=== PATIENT | male | born 1940 | race Caucasian/White ===

== ENCOUNTER 2017-08-01 11:20 | Inpatient (IN) | payer MEDICARE, MEDICAID ==
[~2017-08-01] VITALS: Ht 175.3 cm; Wt 97.0 kg
[2017-08-01] VITALS (7 sets, daily range): BP systolic 103–158; BP diastolic 52–89; PULSE 67–118; RESP 19–20; TEMP 97.3–98.4; O2SAT 94–98
[~2017-08-01 11:20] MED LIST: ASPI81 PO; BENA25TA8 PO; CEPH500C3 PO; IMDU30TA PO; LIPI80TA16 PO; METF-324 OR; METF-324 PO; PRAS10TA PO; PRED20 PO; PRIN5TAB PO
[2017-08-01] MEDS ORDERED: ACETAMINOPHEN 500 MG CPLT PO ONE (11:45)
[2017-08-01] MEDS ORDERED: methylPREDNISolone SOD SUCC 125 MG/2 ML VIAL IV PUSH ONE (11:45)
--- NOTE | 2017-08-01 11:47 | PD ---
HPI Chief Complaint: Respiratory Symptoms Time Seen by Provider: 11:31 Travel History International Travel<30 days: No Contact w/Intl Traveler<30days: No Traveled to known affect area: No History of Present Illness HPI This is a 77-year-old male with history of coronary artery disease, hyperlipidemia, diabetes, presents for evaluation. For the past 6 days he has had cough, congestion, abdominal pain. He reports that the cough is dry, worse at night, associated nasal congestion. He has also been experiencing abdominal pain, primarily in the left lower quadrant, aching, worse when coughing. He reports that 2 days ago he was having chills and his next door neighbor who is a nurse told him that he had a fever but he does not know the temperature. He has had no chills since then. He denies chest pain, nausea or vomiting, diarrhea, sore throat. He denies rash or recent travel. No sick contacts. He has been using [id number] cough and cold medications but his symptoms have persisted. His primary care physician is Dr. Childs. He reports that he received the influenza vaccination this year. No other complaints. PFSH Past Medical History Autoimmune Disease: No Cancer: No Cardiovascular Problems: No Diabetes: Yes Patient Takes Glucophage: No Endocrine: Yes Gastrointestinal Disorders: No Genitourinary: No Hiatal Hernia: Yes Immune Disorder: No Implanted Vascular Access Dvce: No Musculoskeletal: No Neurologic: No Psychiatric: No Reproductive: No Respiratory: No Thyroid Disease: No Past Surgical History Surgical History: No Previous Surgery Abdominal Surgery: Yes (HERNIA) Cardiac Surgery: Yes (STENTS) Ear Surgery: No Endocrine Surgery: No Eye Surgery: No Genitourinary Surgery: No Gynecologic Surgery: No Neurologic Surgery: No Oral Surgery: No Thoracic Surgery: No Other Surgery: Yes Social History Alcohol Use: No Tobacco Use: Yes Substance Use: No Allergies-Medications (Allergen,Severity, Reaction): Coded Allergies: No Known Allergies (Verified , 12/12/11) Reported Meds & Prescriptions Reported Meds & Active Scripts Active Review of Systems Except as stated in HPI: all other systems reviewed are Neg Physical Exam Narrative GENERAL: Well-developed well-nourished male in no acute distress. SKIN: Warm and dry. HEAD: Atraumatic. Normocephalic. EYES: Pupils equal and round. No scleral icterus. No injection or drainage. ENT: No nasal bleeding or discharge. Mucous membranes pink and moist. No oral pharyngeal erythema or exudate. NECK: Trachea midline. No JVD. No lymphadenopathy. CARDIOVASCULAR: Regular rate and rhythm. No murmur appreciated. RESPIRATORY: No accessory muscle use. Expiratory wheezing noted bilaterally with coarse breath sounds. GASTROINTESTINAL: Abdomen soft, abdominal wall hernia noted. There is mild left lower quadrant tenderness to palpation without guarding. There is no CVA tenderness. MUSCULOSKELETAL: No obvious deformities. No clubbing. No cyanosis. No edema. NEUROLOGICAL: Awake and alert. No obvious cranial nerve deficits. Motor grossly within normal limits. Normal speech. PSYCHIATRIC: Appropriate mood and affect; insight and judgment normal. Data Data Last Documented VS Vital Signs Date Time Temp Pulse Resp B/P (MAP) Pulse Ox O2 Delivery O2 Flow Rate FiO2 08/01/17 12:11 98 Aerosol Mask 6.00 08/01/17 12:11 95 30 08/01/17 11:22 98.4 Orders Orders Complete Blood Count With Diff (08/01/17 11:41) Comprehensive Metabolic Panel (08/01/17 11:41) Lipase (08/01/17 11:41) Urinalysis - C+S If Indicated (08/01/17 11:41) Ct Abd/Pel W Iv Contrast(Rout) (08/01/17 11:41) Iv Access Insert/Monitor (08/01/17 11:41) Ecg Monitoring (08/01/17 11:41) Oximetry (08/01/17 11:41) Electrocardiogram (08/01/17 11:41) Influenzae A/B Antigen (08/01/17 11:41) Chest, Single Ap (08/01/17 ) Albuterol-Ipratropium Neb (Duoneb Neb) (08/01/17 11:45) Acetaminophen (Tylenol) (08/01/17 11:45) Methylprednisolone So Succ Inj (Solumedr (08/01/17 11:45) Sodium Chlorid 0.9% 500 Ml Inj (Ns 500 M (08/01/17 13:15) Lactic Acid Sepsis Protocol (08/01/17 13:13) Blood Culture (08/01/17 13:13) Iohexol 350 Inj (Omnipaque 350 Inj) (08/01/17 13:40) Ceftriaxone Inj (Rocephin Inj) (08/01/17 14:30) Azithromycin Inj (Zithromax Inj) (08/01/17 14:30) Labs Laboratory Tests Test 08/01/17 12:05 08/01/17 13:50 White Blood Count 9.8 TH/MM3 Red Blood Count 4.18 MIL/MM3 Hemoglobin 13.1 GM/DL Hematocrit 36.3 % Mean Corpuscular Volume 86.8 FL Mean Corpuscular Hemoglobin 31.3 PG Mean Corpuscular Hemoglobin Concent 36.0 % Red Cell Distribution Width 14.4 % Platelet Count 151 TH/MM3 Mean Platelet Volume 7.0 FL Neutrophils (%) (Auto) 79.2 % Lymphocytes (%) (Auto) 11.9 % Monocytes (%) (Auto) 8.4 % Eosinophils (%) (Auto) 0.1 % Basophils (%) (Auto) 0.4 % Neutrophils # (Auto) 7.8 TH/MM3 Lymphocytes # (Auto) 1.2 TH/MM3 Monocytes # (Auto) 0.8 TH/MM3 Eosinophils # (Auto) 0.0 TH/MM3 Basophils # (Auto) 0.0 TH/MM3 CBC Comment AUTO DIFF Differential Total Cells Counted 100 Neutrophils % (Manual) 73 % Band Neutrophils % 16 % Lymphocytes % 6 % Monocytes % 5 % Neutrophils # (Manual) 8.7 TH/MM3 Differential Comment FINAL DIFF MANUAL Platelet Estimate NORMAL Platelet Morphology Comment NORMAL Ovalocytes 1+ Urine Color YELLOW Urine Turbidity CLEAR Urine pH 7.0 Urine Specific [place] 1.015 Urine Protein TRACE mg/dL Urine Glucose (UA) NEG mg/dL Urine Ketones NEG mg/dL Urine Occult Blood NEG Urine Nitrite NEG Urine Bilirubin NEG Urine Urobilinogen 8.0 MG/DL Urine Leukocyte Esterase NEG Urine RBC 1 /hpf Urine Squamous Epithelial Cells 1 /hpf Microscopic Urinalysis Comment CULT NOT INDICATED Blood Urea Nitrogen 35 MG/DL Creatinine 1.41 MG/DL Random Glucose 161 MG/DL Total Protein 7.6 GM/DL Albumin 3.6 GM/DL Calcium Level 8.3 MG/DL Alkaline Phosphatase 130 U/L Aspartate Amino Transf (AST/SGOT) 21 U/L Alanine Aminotransferase (ALT/SGPT) 15 U/L Total Bilirubin 1.0 MG/DL Sodium Level 138 MEQ/L Potassium Level 4.3 MEQ/L Chloride Level 102 MEQ/L Carbon Dioxide Level 28.6 MEQ/L Anion Gap 7 MEQ/L Estimat Glomerular Filtration Rate 49 ML/MIN Lipase 56 U/L Lactic Acid Level 1.5 mmol/L MDM Medical Decision Making Medical Screen Exam Complete: Yes Emergency Medical Condition: Yes Medical Record Reviewed: Yes Interpretation(s) CONCLUSION: 1. No evidence of acute abdominal or pelvic process. No masses are identified. 2. Right basilar atelectasis versus pneumonia 3. Fat-containing right inguinal hernia 4. 5. Right lateral abdominal wall hernia containing nonincarcerated: 6. Cholelithiasis Differential Diagnosis COPD, pneumonia, influenza, reactive airway disease, bronchitis, diverticulitis Narrative Course The patient was placed on ECG monitoring pulse oximetry. A 12 EKG was obtained revealing left bundle branch block. Chest x-ray reveals right basilar streakiness consistent with atelectasis and/or mild infiltrate. CBC reveals 16 % band neutrophils. GFR reveals 49 which is decreased from previous labs in 2012. Per chart review the patient has an ejection fraction of 25-30% on echocardiogram in 2012. Small bolus of IV fluids has been initiated and lactic acid and blood cultures will be sent. The patient was started on azithromycin and Rocephin for community acquired pneumonia. He will be admitted. Sepsis Criteria SIRS Criteria (2 or more): Heart rate over 90, WBC > 50218, < 4000 or > 10% bands Sepsis Criteria (SIRS+source): Infect source susp/known Criteria Outcome: Meets sepsis criteria Diagnosis Primary Impression: Pneumonia Additional Impression: Sepsis Admitting Information Admitting Physician Requests: it Nelson Guzman Aug 01, 2017 11:47
[2017-08-01] MEDS: RESP: ALBUTEROL 2.5 MG/IPRATROPIUM 0.5 MG NEB (SCH) INH ×2 (11:50→11:51)
[2017-08-01 12:21] LABS: AUTOMATED NEUTROPHIL # 7.8 TH/MM3 (1.8-7.7); BASOPHIL % 0.4 % (0.0-2.0); EOSINOPHIL % 0.1 % (0.0-4.0); HEMATOCRIT 36.3 % (39.0-51.0); HEMOGLOBIN 13.1 GM/DL (13.0-17.0); LYMPH % 11.9 % (9.0-44.0); LYMPHOCYTE # 1.2 TH/MM3 (1.0-4.8); MEAN CELL VOLUME 86.8 FL (80.0-100.0); MEAN CORPUSCULAR HEMOGLOBIN 31.3 PG (27.0-34.0); MONO % 8.4 % (0.0-8.0); MONOCYTE # 0.8 TH/MM3 (0-0.9); NEUT % 79.2 % (16.0-70.0); PLATELET COUNT 151 TH/MM3 (150-450); RED BLOOD COUNT 4.18 MIL/MM3 (4.50-5.90); RED CELL DISTRIBUTION WIDTH 14.4 % (11.6-17.2); WHITE BLOOD COUNT 9.8 TH/MM3 (4.0-11.0)
[2017-08-01 12:22] LABS: BILIRUBIN, URINE NEG (NEG); BLOOD, URINE NEG (NEG); GLUCOSE,URINE NEG (NEG); KETONE, URINE NEG (NEG); NITRITE,URINE NEG (NEG); SQUAMOUS EPITHELIAL CELL URINE 1 /hpf (0-5); URINE COLOR YELLOW (YELLW/STRAW); URINE LEUKOCYTE ESTERASE NEG (NEG)
--- NOTE | 2017-08-01 12:35 | RADRPT ---
EXAM DATE/TIME: 08/01/2017 11:59 [facility] COMPARISON: No previous studies available for comparison. INDICATIONS : Patient complains of cough and shortness of breath. MEDICAL HISTORY : None. SURGICAL HISTORY : None. ENCOUNTER: Initial ACUITY: 3 days PAIN SCORE: 0/10 LOCATION: chest FINDINGS: Right basilar streakiness is noted consistent with atelectasis and/or mild infiltrate. Clinical corre lation is recommended. The left lung is clear. The heart is normal. Degenerative changes are noted th roughout the thoracic spine. CONCLUSION: Right basilar streakiness consistent with atelectasis and/or mild infiltrate. Clinical correlation is recommended. Dioni Proctor MD on August 01, 2017 at 12:32 Board Certified Radiologist. This report was verified electronically.
[2017-08-01 12:37] LABS: ALBUMIN 3.6 GM/DL (3.4-5.0); ALT (GPT) 15 U/L (12-78); AST (GOT) 21 U/L (15-37); BICARBONATE 28.6 MEQ/L (21.0-32.0); BLOOD UREA NITROGEN 35 MG/DL (7-18); CALCIUM 8.3 MG/DL (8.5-10.1); CHLORIDE 102 MEQ/L (98-107); CREATININE 1.41 MG/DL (0.60-1.30); GLOMERULAR FILTRATION RATE 49 ML/MIN (>89); GLUCOSE,RANDOM 161 MG/DL (74-106); LIPASE 56 U/L (73-393); SODIUM (NA) 138 MEQ/L (136-145)
[2017-08-01 12:39] LABS: ALKALINE PHOSPHATASE 130 U/L (45-117); TOTAL PROTEIN 7.6 GM/DL (6.4-8.2)
[2017-08-01 13:03] LABS: BANDS 16 % (0-6); LYMPHOCYTES 6 % (9-44); MONOCYTES 5 % (0-8); NEUTROPHIL # MANUAL DIFF 8.7 TH/MM3 (1.8-7.7); OVALOCYTES 1+ (NORMAL); POLYS (SEG NEUTROPHILS) 73 % (16-70)
[2017-08-01] MEDS ORDERED: SODIUM CHLORID 0.9% 500 ML INJ 500 ML IV ONE (13:15)
[2017-08-01] MEDS ORDERED: METFORMIN HOLD POST IV CONTRAST SCH (13:40)
[2017-08-01] MEDS ORDERED: IOHEXOL 350 MG/ML 10 ML VIAL (for RAD DIAG) IVCONTRAST ONE (13:40)
--- NOTE | 2017-08-01 14:16 | RADRPT ---
EXAM DATE/TIME: 08/01/2017 13:24 [facility] COMPARISON: No previous studies available for comparison. INDICATIONS : Left lower abdomen pain for six days. IV CONTRAST: 95 cc Omnipaque 350 (iohexol) IV ORAL CONTRAST: No oral contrast ingested. RADIATION DOSE: 8.24 CTDIvol (mGy) MEDICAL HISTORY : Hernia, hiatal. diabetes SURGICAL HISTORY : hernia repair ENCOUNTER: Initial ACUITY: 4 - 6 days PAIN SCALE: 6/10 LOCATION: Left lower quadrant TECHNIQUE: Volumetric scanning of the abdomen and pelvis was performed. Using automated exposure control and ad justment of the mA and/or kV according to patient size, radiation dose was kept as low as reasonably achievable to obtain optimal diagnostic quality images. DICOM format image data is available electro nically for review and comparison. FINDINGS: There is right basal atelectasis versus pneumonia in this patient with bibasilar bronchiectasis. The liver and spleen are normal in size and no focal defects are identified. There is eventration of the right hemidiaphragm. There is a single stone within the gallbladder without wall thickening or perich olecystic fluid measuring 2 cm. The pancreas demonstrates no evidence of mass and there is no dilatat ion of the pancreatic duct. The adrenal glands are unremarkable. There are simple cysts bilaterally t he largest measuring 5 cm is on the left with a small focal area of benign-appearing calcification. Examination of the pelvis demonstrates no evidence of free fluid or pelvic mass. No abnormally enlarg ed inguinal or retroperitoneal lymph nodes are present. The bladder is unremarkable. There is diverti culosis without evidence of diverticulitis. There is a fat-containing right inguinal hernia present m easuring 5 cm. There is a second hernia in the right lower quadrant and a lateral, wall containing no nincarcerated loops of colon. CONCLUSION: 1. No evidence of acute abdominal or pelvic process. No masses are identified. 2. Right basilar atelectasis versus pneumonia 3. Fat-containing right inguinal hernia 4. 5. Right lateral abdominal wall hernia containing nonincarcerated: 6. Cholelithiasis Brice Perez MD on August 01, 2017 at 14:07 Board Certified Radiologist. This report was verified electronically.
--- NOTE | 2017-08-01 14:26 | PD ---
Physical Exam Narrative GENERAL: Well-nourished, well-developed patient. SKIN: Warm and dry. HEAD: Normocephalic and atraumatic. EYES: No injection or drainage. ENT: No nasal drainage noted. NECK: Supple, trachea midline. CARDIOVASCULAR: Regular rate and rhythm RESPIRATORY: no increased effort. No accessory muscle use. NEUROLOGICAL: Awake. moves all extremities and sensory grossly within normal limits. Normal speech. Data Data Last Documented VS Vital Signs Date Time Temp Pulse Resp B/P (MAP) Pulse Ox O2 Delivery O2 Flow Rate FiO2 08/01/17 12:11 98 Aerosol Mask 6.00 08/01/17 12:11 95 30 08/01/17 11:22 98.4 Orders Orders Complete Blood Count With Diff (08/01/17 11:41) Comprehensive Metabolic Panel (08/01/17 11:41) Lipase (08/01/17 11:41) Urinalysis - C+S If Indicated (08/01/17 11:41) Ct Abd/Pel W Iv Contrast(Rout) (08/01/17 11:41) Iv Access Insert/Monitor (08/01/17 11:41) Ecg Monitoring (08/01/17 11:41) Oximetry (08/01/17 11:41) Electrocardiogram (08/01/17 11:41) Influenzae A/B Antigen (08/01/17 11:41) Chest, Single Ap (08/01/17 ) Albuterol-Ipratropium Neb (Duoneb Neb) (08/01/17 11:45) Acetaminophen (Tylenol) (08/01/17 11:45) Methylprednisolone So Succ Inj (Solumedr (08/01/17 11:45) Sodium Chlorid 0.9% 500 Ml Inj (Ns 500 M (08/01/17 13:15) Lactic Acid Sepsis Protocol (08/01/17 13:13) Blood Culture (08/01/17 13:13) Iohexol 350 Inj (Omnipaque 350 Inj) (08/01/17 13:40) Labs Laboratory Tests Test 08/01/17 12:05 08/01/17 13:50 White Blood Count 9.8 TH/MM3 Red Blood Count 4.18 MIL/MM3 Hemoglobin 13.1 GM/DL Hematocrit 36.3 % Mean Corpuscular Volume 86.8 FL Mean Corpuscular Hemoglobin 31.3 PG Mean Corpuscular Hemoglobin Concent 36.0 % Red Cell Distribution Width 14.4 % Platelet Count 151 TH/MM3 Mean Platelet Volume 7.0 FL Neutrophils (%) (Auto) 79.2 % Lymphocytes (%) (Auto) 11.9 % Monocytes (%) (Auto) 8.4 % Eosinophils (%) (Auto) 0.1 % Basophils (%) (Auto) 0.4 % Neutrophils # (Auto) 7.8 TH/MM3 Lymphocytes # (Auto) 1.2 TH/MM3 Monocytes # (Auto) 0.8 TH/MM3 Eosinophils # (Auto) 0.0 TH/MM3 Basophils # (Auto) 0.0 TH/MM3 CBC Comment AUTO DIFF Differential Total Cells Counted 100 Neutrophils % (Manual) 73 % Band Neutrophils % 16 % Lymphocytes % 6 % Monocytes % 5 % Neutrophils # (Manual) 8.7 TH/MM3 Differential Comment FINAL DIFF MANUAL Platelet Estimate NORMAL Platelet Morphology Comment NORMAL Ovalocytes 1+ Urine Color YELLOW Urine Turbidity CLEAR Urine pH 7.0 Urine Specific [place] 1.015 Urine Protein TRACE mg/dL Urine Glucose (UA) NEG mg/dL Urine Ketones NEG mg/dL Urine Occult Blood NEG Urine Nitrite NEG Urine Bilirubin NEG Urine Urobilinogen 8.0 MG/DL Urine Leukocyte Esterase NEG Urine RBC 1 /hpf Urine Squamous Epithelial Cells 1 /hpf Microscopic Urinalysis Comment CULT NOT INDICATED Blood Urea Nitrogen 35 MG/DL Creatinine 1.41 MG/DL Random Glucose 161 MG/DL Total Protein 7.6 GM/DL Albumin 3.6 GM/DL Calcium Level 8.3 MG/DL Alkaline Phosphatase 130 U/L Aspartate Amino Transf (AST/SGOT) 21 U/L Alanine Aminotransferase (ALT/SGPT) 15 U/L Total Bilirubin 1.0 MG/DL Sodium Level 138 MEQ/L Potassium Level 4.3 MEQ/L Chloride Level 102 MEQ/L Carbon Dioxide Level 28.6 MEQ/L Anion Gap 7 MEQ/L Estimat Glomerular Filtration Rate 49 ML/MIN Lipase 56 U/L Lactic Acid Level 1.5 mmol/L MDM Supervised Visit with LUPE: Yes Interpretation(s) CBC & BMP Diagram 08/01/17 12:05 Total Protein 7.6, Albumin 3.6, Calcium Level 8.3 L, Alkaline Phosphatase 130 H , Aspartate Amino Transf (AST/SGOT) 21, Alanine Aminotransferase (ALT/SGPT) 15, Total Bilirubin 1.0 Last 24 hours Impressions Abdomen/Pelvis CT 08/01/17 1141 Signed Impressions: Service Date/Time: Tuesday, August 01, 2017 13:24 - CONCLUSION: 1. No evidence of acute abdominal or pelvic process. No masses are identified. 2. Right basilar atelectasis versus pneumonia 3. Fat-containing right inguinal hernia 4. 5. Right lateral abdominal wall hernia containing nonincarcerated: 6. Cholelithiasis Brice Perez MD Chest X-Ray 08/01/17 0000 Signed Impressions: Service Date/Time: Tuesday, August 01, 2017 11:59 - CONCLUSION: Right basilar streakiness consistent with atelectasis and/or mild infiltrate. Clinical correlation is recommended. Dioni Proctor MD Narrative Course I, Dr. chan, have reviewed the advance practice practitioner's documentation and am in agreement, met with the patient face to face, made the diagnosis, and the medical decision making was done by me. *My assessment and Findings: 77-year-old male presents with cough and flulike symptoms with abdominal pain. Workup reveals pneumonia with bands noted. Patient is also tachypneic and initially tachycardic. Lactate is normal patient has no signs of hypotension. He'll be admitted to the hospital for further care. Sepsis Criteria SIRS Criteria (2 or more): Heart rate over 90, RR > 20 or PaCO2 < 32, WBC > 44875, < 4000 or > 10% bands Sepsis Criteria (SIRS+source): Infect source susp/known Diagnosis Primary Impression: Pneumonia Qualified Codes: J18.9 - Pneumonia, unspecified organism Additional Impression: Sepsis Qualified Codes: A41.9 - Sepsis, unspecified organism Britta Chan MD Aug 01, 2017 14:26
[2017-08-01] MEDS ORDERED: AZITHROMYCIN INJ 500 MG in SODIUM CHLOR 0.9% 250 ML INJ 250 ML IV ONE (14:30)
[2017-08-01] MEDS ORDERED: cefTRIAXone INJ 1,000 MG in SODIUM CHLORIDE 0.9% INJ 100 ML IV ONE (14:30)
[2017-08-01] MEDS ORDERED: ONDANSETRON HCL 4 MG/2 ML VIAL IVP PRN (14:45)
[2017-08-01] MEDS ORDERED: RESP: ALBUTEROL 2.5 MG/IPRATROPIUM 0.5 MG NEB (PRN) NEB (14:45)
[2017-08-01] MEDS ORDERED: SODIUM CHLORIDE 0.9% FLUSH 10 ML FLUSH IV FLUSH PRN (14:45)
[2017-08-01] MEDS ORDERED: MAGNESIUM HYDROXIDE SUSP 30 ML CUP PO PRN (14:45)
[2017-08-01] MEDS ORDERED: NALOXONE HCL 0.4 MG/ML AMP IV PUSH PRN (14:45)
[2017-08-01] MEDS ORDERED: ACETAMINOPHEN 325 MG TAB PO PRN (14:45)
[2017-08-01] MEDS ORDERED: FURO20TA PO (15:59)
[2017-08-01] MEDS ORDERED: ASPI-516 CHEW (15:59)
[2017-08-01] MEDS ORDERED: LISI10TA3 PO (15:59)
[2017-08-01] MEDS ORDERED: PRAS10TA4 PO (15:59)
[2017-08-01] MEDS ORDERED: K-TA10TA PO (15:59)
[2017-08-01] MEDS ORDERED: HYDR25TA5 PO (15:59)
[2017-08-01] MEDS ORDERED: FERR325T18 PO (15:59)
[2017-08-01] MEDS ORDERED: CARV12.52 PO (15:59)
[2017-08-01] MEDS ORDERED: ISOS30TA3 PO (15:59)
[2017-08-01] MEDS: INSULIN ASPART SUPPLEMENTAL SCALE SQ SCH ×2 (17:40→21:00)
[2017-08-01] MEDS: 1/2 NS + KCL 20 MEQ INJ 1,000 ML IV SCH (17:41)
--- NOTE | 2017-08-01 17:55 | HHI.HP ---
HPI Service [facility] Hospitalists Primary Care Physician No Primary Care Physician Admission Diagnosis community-acquired pneumonia Chief Complaint: Cough and SOB x 2-3 days Travel History International Travel<30 Days: No Contact w/Intl Traveler <30 Da: No Traveled to Known Affected Are: No History of Present Illness This is 77-year-old male patient with past medical history which includes CAD status post cardiac stents, chronic kidney disease stage II, hyperlipidemia, hypertension, diabetes mellitus and chronic systolic congestive heart failure. Patient presents to the emergency department due to cough congestion and abdominal pain. Patient reports that he has had cough and shortness of breath for the past couple of days. He reports that the cough is dry, worse at night, associated with nasal congestion. He reports that 2 days ago he was having chills and subjective fever. Patient denies chest pain, nausea/vomiting, diarrhea, sore throat, rash, recent travel or sick contacts. He has been using [id number] cough and cold medications but his symptoms have persisted. Chest x-ray obtained in the emergency department reveals right basilar streakiness consistent with atelectasis and/or mild infiltrate. Review of Systems Constitutional: COMPLAINS OF: Fatigue, Fever, Chills Eyes: DENIES: Blurred vision, Diplopia Respiratory: COMPLAINS OF: Cough, Shortness of breath, DENIES: Sputum production Cardiovascular: DENIES: Chest pain, Palpitations, Lower Extremity Edema Gastrointestinal: DENIES: Abdominal pain, Constipation, Diarrhea, Nausea, Vomiting Neurologic: DENIES: Abnormal gait, Localized weakness, Speech Problems Psychiatric: DENIES: Anxiety, Confusion, Depression Past Family Social History Past Medical History CAD status post cardiac stents, chronic kidney disease stage II, hyperlipidemia , hypertension, diabetes mellitus and chronic systolic congestive heart failure Past Surgical History Cardiac stents Hernia repair Reported Medications Ferrous Sulfate 325 Mg (65 Mg Iron) Tablet 325 Mg PO DAILY Aspirin 81 Mg Chew 81 Mg CHEW DAILY Hydrochlorothiazide 25 Mg Tab 25 Mg PO DAILY Carvedilol 12.5 Mg Tab 12.5 Mg PO BID Isosorbide Mononitrate ER (Isosorbide Mononitrate) 30 Mg Mehul 30 Mg PO DAILY Lisinopril 10 Mg Tab 10 Mg PO DAILY Furosemide 20 Mg Tab 20 Mg PO BID Prasugrel HCl 10 Mg Tablet 10 Mg PO DAILY K-Tab (Potassium Chloride) 10 Meq Tab 10 Meq PO DAILY Allergies: Coded Allergies: No Known Allergies (Verified , 12/12/11) Active Ordered Medications Current Medications Medications (Trade) Dose Ordered Sig/Glenis Route Start Time Stop Time Status Last Admin (NS Flush) 2 ml UNSCH PRN IV FLUSH 08/01/17 14:45 (NS Flush) 2 ml BID IV FLUSH 08/01/17 21:00 (Tylenol) 650 mg Q4H PRN PO 08/01/17 14:45 (Zofran Inj) 4 mg Q6H PRN IVP 08/01/17 14:45 (Narcan Inj) 0.4 mg UNSCH PRN IV PUSH 08/01/17 14:45 (Milk Of Magnesia Liq) 30 ml Q12H PRN PO 08/01/17 14:45 Potassium Chloride/Sodium Chloride 1,000 ml @ 84 mls/hr [id number] IV 08/01/17 16:00 08/02/17 15:59 Ceftriaxone Sodium 1000 mg/ Sodium Chloride 100 ml @ 200 mls/hr Q24H IV 08/02/17 08:00 (Zithromax) 250 mg DAILY PO 08/02/17 09:00 (Duoneb Neb) 1 ampule Q2HR NEB PRN NEB 08/01/17 14:45 (NovoLOG SUPPLEMENTAL SCALE) 1 ACHS SLIDING SCALE SQ 08/01/17 17:00 Miscellaneous Information HOLD METFORMIN FOR... Q24H .XX 08/01/17 13:40 08/03/17 13:39 Family History Reviewed and noncontributory Social History Denies EtOH use Denies illicit drug use History of tobacco use Physical Exam Vital Signs Vital Signs Date Time Temp Pulse Resp B/P (MAP) Pulse Ox O2 Delivery O2 Flow Rate FiO2 08/01/17 16:07 08/01/17 15:30 97 20 148/89 (108) 97 Room Air 08/01/17 13:30 111 20 137/88 (104) 97 Room Air 08/01/17 12:11 98 Aerosol Mask 6.00 08/01/17 12:11 95 30 98 Aerosol Mask 08/01/17 11:22 98.4 118 20 158/78 (104) 95 Physical Exam GENERAL: This is a well-nourished, well-developed patient, in no apparent distress. SKIN: No rashes, ecchymoses or lesions. Cool and dry. HEAD: Atraumatic. Normocephalic. No temporal or scalp tenderness. EYES: Extraocular motions intact. No scleral icterus. No injection or drainage. CARDIOVASCULAR: Regular rate and rhythm RESPIRATORY: coarse through out GASTROINTESTINAL: Abdomen soft, non-tender, nondistended. No hepato-splenomegaly , or palpable masses. No guarding. MUSCULOSKELETAL: Extremities without clubbing, cyanosis, or edema. No joint tenderness, effusion, or edema noted. No calf tenderness. Negative Homans sign bilaterally. NEUROLOGICAL: Awake and alert. No focal deficits identified. Motor and sensory grossly within normal limits. Five out of 5 muscle strength in all muscle groups. Normal speech. Laboratory Laboratory Tests Test 08/01/17 12:05 08/01/17 13:50 White Blood Count 9.8 Red Blood Count 4.18 Hemoglobin 13.1 Hematocrit 36.3 Mean Corpuscular Volume 86.8 Mean Corpuscular Hemoglobin 31.3 Mean Corpuscular Hemoglobin Concent 36.0 Red Cell Distribution Width 14.4 Platelet Count 151 Mean Platelet Volume 7.0 Neutrophils (%) (Auto) 79.2 Lymphocytes (%) (Auto) 11.9 Monocytes (%) (Auto) 8.4 Eosinophils (%) (Auto) 0.1 Basophils (%) (Auto) 0.4 Neutrophils # (Auto) 7.8 Lymphocytes # (Auto) 1.2 Monocytes # (Auto) 0.8 Eosinophils # (Auto) 0.0 Basophils # (Auto) 0.0 CBC Comment AUTO DIFF Differential Total Cells Counted 100 Neutrophils % (Manual) 73 Band Neutrophils % 16 Lymphocytes % 6 Monocytes % 5 Neutrophils # (Manual) 8.7 Differential Comment FINAL DIFF MANUAL Platelet Estimate NORMAL Platelet Morphology Comment NORMAL Ovalocytes 1+ Urine Color YELLOW Urine Turbidity CLEAR Urine pH 7.0 Urine Specific [place] 1.015 Urine Protein TRACE Urine Glucose (UA) NEG Urine Ketones NEG Urine Occult Blood NEG Urine Nitrite NEG Urine Bilirubin NEG Urine Urobilinogen 8.0 Urine Leukocyte Esterase NEG Urine RBC 1 Urine Squamous Epithelial Cells 1 Microscopic Urinalysis Comment CULT NOT INDICATED Blood Urea Nitrogen 35 Creatinine 1.41 Random Glucose 161 Total Protein 7.6 Albumin 3.6 Calcium Level 8.3 Alkaline Phosphatase 130 Aspartate Amino Transf (AST/SGOT) 21 Alanine Aminotransferase (ALT/SGPT) 15 Total Bilirubin 1.0 Sodium Level 138 Potassium Level 4.3 Chloride Level 102 Carbon Dioxide Level 28.6 Anion Gap 7 Estimat Glomerular Filtration Rate 49 Lipase 56 Lactic Acid Level 1.5 Date/Time Source Procedure Growth Status 08/01/17 13:50 Blood Peripheral Aerobic Blood Culture Pending Received 08/01/17 13:50 Blood Peripheral Anaerobic Blood Culture Pending Received 08/01/17 12:05 Nasal Aspirate Influenza Types A,B Antigen (CAIT) - Final NEGATIVE FOR FLU A AND B ANTIGEN.... Complete Result Diagram: 08/01/17 1205 08/01/17 1205 Imaging Last Impressions Abdomen/Pelvis CT 08/01/17 1141 Signed Impressions: Service Date/Time: Tuesday, August 01, 2017 13:24 - CONCLUSION: 1. No evidence of acute abdominal or pelvic process. No masses are identified. 2. Right basilar atelectasis versus pneumonia 3. Fat-containing right inguinal hernia 4. 5. Right lateral abdominal wall hernia containing nonincarcerated: 6. Cholelithiasis Brice Perez MD Chest X-Ray 08/01/17 0000 Signed Impressions: Service Date/Time: Tuesday, August 01, 2017 11:59 - CONCLUSION: Right basilar streakiness consistent with atelectasis and/or mild infiltrate. Clinical correlation is recommended. Dioni Proctor MD Caprini VTE Risk Assessment Caprini VTE Risk Assessment: No/Low Risk (score <= 1) Caprini Risk Assessment Model Point Value = 1 Point Value = 2 Point Value = 3 Point Value = 5 Age 41-60 Minor surgery BMI > 25 kg/m2 Swollen legs Varicose veins or History of unexplained or recurrent spontaneous Oral contraceptives or hormone replacement Sepsis (< 1 month) Serious lung disease, including pneumonia (< 1 month) Abnormal pulmonary function Acute myocardial infarction Congestive heart failure (< 1 month) History of inflammatory bowel disease Medical patient at bed rest Age 61-74 Arthroscopic surgery Major open surgery (> 45 min) Laparoscopic surgery (> 45 min) Malignancy Confined to bed (> 72 hours) Immobilizing plaster cast Central venous access Age >= 75 History of VTE Family history of VTE Factor V Leiden Prothrombin [id number] Lupus anticoagulant Anticardiolipin antibodies Elevated serum homocysteine Heparin-induced thrombocytopenia Other congenital or acquired thrombophilia Stroke (< 1 month) Elective arthroplasty Hip, pelvis, or leg fracture Acute spinal cord injury (< 1 month) Prophylaxis Regimen Total Risk Factor Score Risk Level Prophylaxis Regimen 0-1 Low Early ambulation 2 Moderate Order ONE of the following: *Sequential Compression Device (SCD) *Heparin 5000 units SQ BID 3-4 Higher Order ONE of the following medications: *Heparin 5000 units SQ TID *Enoxaparin/Lovenox 40 mg SQ daily (WT < 150 kg, CrCl > 30 mL/min) *Enoxaparin/Lovenox 30 mg SQ daily (WT < 150 kg, CrCl > 10-29 mL/min) *Enoxaparin/Lovenox 30 mg SQ BID (WT < 150 kg, CrCl > 30 mL/min) AND/OR *Sequential Compression Device (SCD) 5 or more Highest Order ONE of the following medications: *Heparin 5000 units SQ TID (Preferred with Epidurals) *Enoxaparin/Lovenox 40 mg SQ daily (WT < 150 kg, CrCl > 30 mL/min) *Enoxaparin/Lovenox 30 mg SQ daily (WT < 150 kg, CrCl > 10-29 mL/min) *Enoxaparin/Lovenox 30 mg SQ BID (WT < 150 kg, CrCl > 30 mL/min) AND *Sequential Compression Device (SCD) Assessment and Plan Problem List: (1) Pneumonia ICD Codes: J18.9 - Pneumonia, unspecified organism Status: Acute Plan: This is 77-year-old male patient with past medical history which includes CAD status post cardiac stents, chronic kidney disease stage II, hyperlipidemia, hypertension, diabetes mellitus and chronic systolic congestive heart failure. Patient presents to the emergency department due to cough congestion and abdominal pain. Patient reports that he has had cough and shortness of breath for the past couple of days. He reports that the cough is dry, worse at night, associated with nasal congestion. He reports that 2 days ago he was having chills and subjective fever. Patient denies chest pain, nausea/vomiting, diarrhea, sore throat, rash, recent travel or sick contacts. He has been using [id number] cough and cold medications but his symptoms have persisted. Chest x-ray obtained in the emergency department reveals right basilar streakiness consistent with atelectasis and/or mild infiltrate. Patient some azithromycin and Rocephin will continue Duonebs every 6 hours while awake and every 2 hours when necessary Solumedrol 60 mg IV BID (2) Abdominal pain ICD Codes: R10.9 - Unspecified abdominal pain Plan: CT abdomen and pelvis obtained in the emergency department reveals no evidence of acute abdominal or pelvic process. No masses are identified. Right basilar atelectasis versus pneumonia. Fat containing right inguinal hernia. Right lateral abdominal wall hernia nonincarcerated. Abdominal pain likely musculoskeletal secondary to coughing (3) CAD (coronary artery disease) ICD Codes: I25.10 - Atherosclerotic heart disease of [place] coronary artery without angina pectoris Plan: Continue patient's aspirin, Plavix, isosorbide Coreg and statin (4) Hyperlipidemia ICD Codes: E78.5 - Hyperlipidemia, unspecified Plan: Continue home statin (5) Diabetes ICD Codes: E11.9 - Type 2 diabetes mellitus without complications Plan: Hold oral diabetic medication while in the hospital Accu-Cheks before meals at bedtime with Sliding scale insulin coverage and diabetic diet (6) Chronic systolic (congestive) heart failure ICD Codes: I50.22 - Chronic systolic (congestive) heart failure Plan: Continue patient's aspirin, Plavix, isosorbide Coreg, lisinopril and statin Review of outpatient records patient's last echocardiogram May 2017 revealed ejection fraction 35%. Monitor patient for signs and symptoms of fluid overload with IV fluid Continue patient's home Lasix 20 mg twice a day with potassium supplement Assessment and Plan Patient examined. Assessment and plan formulated with Ellen Wahl PA-C. I agree with the above. Physician Certification 2 Midnight Certification Type: Admission for Inpatient Services Order for Inpatient Services The services are ordered in accordance with Medicare regulations or non- Medicare payer requirements, as applicable. In the case of services not specified as inpatient-only, they are appropriately provided as inpatient services in accordance with the 2-midnight benchmark. Estimated LOS (days): 3 days is the estimated time the patient will need to remain in the hospital, assuming treatment plan goals are met and no additional complications. Post-Hospital Plan: Home Problem Qualifiers (1) Pneumonia: Qualified Codes: J18.9 - Pneumonia, unspecified organism Ellen Wahl Aug 01, 2017 17:55 Arnaud Fountain DO Aug 06, 2017 00:57
[2017-08-01] MEDS ORDERED: LISI-519 PO (18:28)
[2017-08-01] MEDS ORDERED: CARV3.12 PO (18:28)
[2017-08-01 19:02] LABS: CREATININE 1.33 MG/DL (0.60-1.30)
[2017-08-01] MEDS: methylPREDNISolone SOD SUCC 125 MG/2 ML VIAL IV PUSH SCH (19:40)
[2017-08-01] MEDS: SODIUM CHLORIDE 0.9% FLUSH 10 ML FLUSH IV FLUSH SCH (19:41)
[2017-08-01] MEDS: CARVEDILOL 3.125 MG TAB PO SCH (19:41)
[2017-08-01] MEDS: RESP: ALBUTEROL 2.5 MG/IPRATROPIUM 0.5 MG NEB (SCH) NEB (19:52)
[2017-08-01] MEDS ORDERED: FUROSEMIDE 20 MG TAB PO SCH (21:00)
[2017-08-01] MEDS ORDERED: CARVEDILOL 12.5 MG TAB PO SCH (21:00)
[2017-08-02] VITALS (7 sets, daily range): BP systolic 110–127; BP diastolic 54–72; PULSE 60–71; RESP 17–20; TEMP 96.2–96.9; O2SAT 94–99
[2017-08-02] MEDS: 1/2 NS + KCL 20 MEQ INJ 1,000 ML IV SCH (02:49)
[2017-08-02 07:32] LABS: AUTOMATED NEUTROPHIL # 12.1 TH/MM3 (1.8-7.7); BASOPHIL % 0.2 % (0.0-2.0); HEMATOCRIT 36.4 % (39.0-51.0); LYMPH % 8.2 % (9.0-44.0); LYMPHOCYTE # 1.1 TH/MM3 (1.0-4.8); MEAN CELL VOLUME 85.9 FL (80.0-100.0); MEAN CORPUSCULAR HEMOGLOBIN 30.7 PG (27.0-34.0); MEAN CORPUSCULAR HGB CONC 35.7 % (32.0-36.0); MEAN PLATELET VOLUME 7.2 FL (7.0-11.0); MONO % 3.3 % (0.0-8.0); MONOCYTE # 0.4 TH/MM3 (0-0.9); NEUT % 88.3 % (16.0-70.0); PLATELET COUNT 172 TH/MM3 (150-450); RED BLOOD COUNT 4.23 MIL/MM3 (4.50-5.90); RED CELL DISTRIBUTION WIDTH 14.2 % (11.6-17.2); WHITE BLOOD COUNT 13.7 TH/MM3 (4.0-11.0)
[2017-08-02 07:42] LABS: BICARBONATE 25.6 MEQ/L (21.0-32.0); CALCIUM 8.4 MG/DL (8.5-10.1); CREATININE 1.38 MG/DL (0.60-1.30)
[2017-08-02] MEDS: SODIUM CHLORIDE 0.9% FLUSH 10 ML FLUSH IV FLUSH SCH ×2 (08:00→19:46)
[2017-08-02] MEDS: RESP: ALBUTEROL 2.5 MG/IPRATROPIUM 0.5 MG NEB (SCH) NEB ×3 (08:15→20:40)
--- NOTE | 2017-08-02 08:52 | RADRPT ---
EXAM DATE/TIME: 08/02/2017 08:37 [facility] COMPARISON: CHEST SINGLE AP, August 01, 2017, 11:59. INDICATIONS : Cough MEDICAL HISTORY : SURGICAL HISTORY : None. ENCOUNTER: Initial ACUITY: 1 day PAIN SCORE: 0/10 LOCATION: Bilateral chest FINDINGS: PA and lateral views of the chest demonstrate the lungs to be symmetrically aerated without evidence of mass, infiltrate or effusion. The cardiomediastinal contours are unremarkable. There is elevatio n of the right hemidiaphragm. Degenerative changes are noted throughout the thoracic spine. CONCLUSION: 1. No acute cardiopulmonary disease. 2. Elevation of the right hemidiaphragm. 3. Degenerative changes involving the thoracic spine. Dioni Proctor MD on August 02, 2017 at 8:49 Board Certified Radiologist. This report was verified electronically.
[2017-08-02] MEDS ORDERED: POTASSIUM CHLORIDE 10 MEQ CONTROLLED RELEASE TAB PO SCH (09:00)
[2017-08-02] MEDS ORDERED: LISINOPRIL 10 MG TAB PO SCH (09:00)
[2017-08-02] MEDS: cefTRIAXone INJ 1,000 MG in SODIUM CHLORIDE 0.9% INJ 100 ML IV SCH (09:20)
[2017-08-02] MEDS: methylPREDNISolone SOD SUCC 125 MG/2 ML VIAL IV PUSH SCH ×2 (09:21→19:46)
[2017-08-02] MEDS: FERROUS SULFATE 325 MG (65 MG ELEMENTAL IRON) TAB PO SCH (09:21)
[2017-08-02] MEDS: ASPIRIN 81 MG CHEW TAB CHEW SCH (09:21)
[2017-08-02] MEDS: PRASUGREL 10 MG TAB PO SCH (09:21)
[2017-08-02] MEDS: ISOSORBIDE MONONITRATE 30 MG TAB PO SCH (09:22)
[2017-08-02] MEDS: AZITHROMYCIN 250 MG TAB PO SCH (09:22)
[2017-08-02] MEDS: CARVEDILOL 3.125 MG TAB PO SCH ×2 (09:22→19:46)
[2017-08-02] MEDS: INSULIN ASPART SUPPLEMENTAL SCALE SQ SCH ×4 (09:23→19:47)
[2017-08-02] MEDS: LISINOPRIL 5 MG TAB PO SCH (09:24)
--- NOTE | 2017-08-02 13:53 | EKG ---
Date Performed: 08/01/2017 Time Performed: 12:41:14 PTAGE: 77 years EKG: Sinus rhythm LEFT BUNDLE BRANCH BLOCK ABNORMAL ECG Compared to PREVIOUS TRACING , patient now has left bundle branch block pattern. Previous tracing jose alfredo wed likely acute inferior wall injury. PREVIOUS TRACIN12/06/2011 05.16 DOCTOR: Juan Luis Dominguez Interpretating Date/Time 08/02/2017 13:52:08
--- NOTE | 2017-08-02 15:11 | HHI.PR ---
Subjective Remarks Patient reports feeling slightly better today. on RA less cough Objective Vitals Vital Signs Date Time Temp Pulse Resp B/P (MAP) Pulse Ox O2 Delivery O2 Flow Rate FiO2 08/02/17 14:29 61 08/02/17 12:00 96.5 67 18 110/54 (72) 95 08/02/17 08:00 96.5 66 17 118/72 (87) 97 08/02/17 04:00 96.7 64 20 125/65 (85) 99 08/02/17 00:00 96.2 60 20 121/57 (78) 96 08/01/17 21:03 67 08/01/17 20:00 97.6 72 20 103/52 (69) 95 08/01/17 16:07 08/01/17 16:00 97.3 71 19 128/61 (83) 94 08/01/17 15:30 97 20 148/89 (108) 97 Room Air Result Diagram: 08/02/17 0642 08/02/17 0642 Other Results Laboratory Tests Test 08/01/17 12:05 08/01/17 13:50 08/01/17 17:50 08/02/17 06:42 White Blood Count 9.8 TH/MM3 13.7 TH/MM3 Red Blood Count 4.18 MIL/MM3 4.23 MIL/MM3 Hemoglobin 13.1 GM/DL 13.0 GM/DL Hematocrit 36.3 % 36.4 % Mean Corpuscular Volume 86.8 FL 85.9 FL Mean Corpuscular Hemoglobin 31.3 PG 30.7 PG Mean Corpuscular Hemoglobin Concent 36.0 % 35.7 % Red Cell Distribution Width 14.4 % 14.2 % Platelet Count 151 TH/MM3 172 TH/MM3 Mean Platelet Volume 7.0 FL 7.2 FL Neutrophils (%) (Auto) 79.2 % 88.3 % Lymphocytes (%) (Auto) 11.9 % 8.2 % Monocytes (%) (Auto) 8.4 % 3.3 % Eosinophils (%) (Auto) 0.1 % 0.0 % Basophils (%) (Auto) 0.4 % 0.2 % Neutrophils # (Auto) 7.8 TH/MM3 12.1 TH/MM3 Lymphocytes # (Auto) 1.2 TH/MM3 1.1 TH/MM3 Monocytes # (Auto) 0.8 TH/MM3 0.4 TH/MM3 Eosinophils # (Auto) 0.0 TH/MM3 0.0 TH/MM3 Basophils # (Auto) 0.0 TH/MM3 0.0 TH/MM3 CBC Comment AUTO DIFF DIFF FINAL Differential Total Cells Counted 100 Neutrophils % (Manual) 73 % Band Neutrophils % 16 % Lymphocytes % 6 % Monocytes % 5 % Neutrophils # (Manual) 8.7 TH/MM3 Differential Comment FINAL DIFF MANUAL Platelet Estimate NORMAL Platelet Morphology Comment NORMAL Ovalocytes 1+ Urine Color YELLOW Urine Turbidity CLEAR Urine pH 7.0 Urine Specific [place] 1.015 Urine Protein TRACE mg/dL Urine Glucose (UA) NEG mg/dL Urine Ketones NEG mg/dL Urine Occult Blood NEG Urine Nitrite NEG Urine Bilirubin NEG Urine Urobilinogen 8.0 MG/DL Urine Leukocyte Esterase NEG Urine RBC 1 /hpf Urine Squamous Epithelial Cells 1 /hpf Microscopic Urinalysis Comment CULT NOT INDICATED Blood Urea Nitrogen 35 MG/DL 40 MG/DL Creatinine 1.41 MG/DL 1.33 MG/DL 1.38 MG/DL Random Glucose 161 MG/DL 208 MG/DL Total Protein 7.6 GM/DL Albumin 3.6 GM/DL Calcium Level 8.3 MG/DL 8.4 MG/DL Alkaline Phosphatase 130 U/L Aspartate Amino Transf (AST/SGOT) 21 U/L Alanine Aminotransferase (ALT/SGPT) 15 U/L Total Bilirubin 1.0 MG/DL Sodium Level 138 MEQ/L 135 MEQ/L Potassium Level 4.3 MEQ/L 3.8 MEQ/L Chloride Level 102 MEQ/L 101 MEQ/L Carbon Dioxide Level 28.6 MEQ/L 25.6 MEQ/L Anion Gap 7 MEQ/L 8 MEQ/L Estimat Glomerular Filtration Rate 49 ML/MIN 52 ML/MIN 50 ML/MIN Lipase 56 U/L Lactic Acid Level 1.5 mmol/L Imaging Last Impressions Abdomen/Pelvis CT 08/01/17 1141 Signed Impressions: Service Date/Time: Tuesday, August 01, 2017 13:24 - CONCLUSION: 1. No evidence of acute abdominal or pelvic process. No masses are identified. 2. Right basilar atelectasis versus pneumonia 3. Fat-containing right inguinal hernia 4. 5. Right lateral abdominal wall hernia containing nonincarcerated: 6. Cholelithiasis Brice Perez MD Chest X-Ray 08/01/17 0000 Signed Impressions: Service Date/Time: Tuesday, August 01, 2017 11:59 - CONCLUSION: Right basilar streakiness consistent with atelectasis and/or mild infiltrate. Clinical correlation is recommended. Dioni Proctor MD Objective Remarks GENERAL: This is a well-nourished, well-developed patient, in no apparent distress. CARDIOVASCULAR: Regular rate and rhythm RESPIRATORY: Improved from yesterday GASTROINTESTINAL: Abdomen soft, non-tender, nondistended. No hepato-splenomegaly , or palpable masses. No guarding. MUSCULOSKELETAL: Extremities without clubbing, cyanosis, or edema. No joint tenderness, effusion, or edema noted. No calf tenderness. Negative Homans sign bilaterally. NEUROLOGICAL: Awake and alert. No focal deficits identified. Motor and sensory grossly within normal limits. 5 out of 5 muscle strength in all muscle groups. Normal speech. A/P Problem List: (1) Pneumonia ICD Codes: J18.9 - Pneumonia, unspecified organism Status: Acute Plan: This is 77-year-old male patient with past medical history which includes CAD status post cardiac stents, chronic kidney disease stage II, hyperlipidemia, hypertension, diabetes mellitus and chronic systolic congestive heart failure. Patient presents to the emergency department due to cough congestion and abdominal pain. Patient reports that he has had cough and shortness of breath for the past couple of days. He reports that the cough is dry, worse at night, associated with nasal congestion. He reports that 2 days ago he was having chills and subjective fever. Patient denies chest pain, nausea/vomiting, diarrhea, sore throat, rash, recent travel or sick contacts. He has been using [id number]-[id number]-[id number] cough and cold medications but his symptoms have persisted. Chest x-ray obtained in the emergency department reveals right basilar streakiness consistent with atelectasis and/or mild infiltrate. Patient some azithromycin and Rocephin will continue Duonebs every 6 hours while awake and every 2 hours when necessary Solumedrol 60 mg IV BID (2) Abdominal pain ICD Codes: R10.9 - Unspecified abdominal pain Plan: CT abdomen and pelvis obtained in the emergency department reveals no evidence of acute abdominal or pelvic process. No masses are identified. Right basilar atelectasis versus pneumonia. Fat containing right inguinal hernia. Right lateral abdominal wall hernia nonincarcerated. Abdominal pain likely musculoskeletal secondary to coughing (3) CAD (coronary artery disease) ICD Codes: I25.10 - Atherosclerotic heart disease of [place] coronary artery without angina pectoris Plan: Continue patient's aspirin, Plavix, isosorbide Coreg and statin (4) Hyperlipidemia ICD Codes: E78.5 - Hyperlipidemia, unspecified Plan: Continue home statin (5) Diabetes ICD Codes: E11.9 - Type 2 diabetes mellitus without complications Plan: Hold oral diabetic medication while in the hospital Accu-Cheks before meals at bedtime with Sliding scale insulin coverage and diabetic diet 08/02 blood sugar running high 190- 274 add Levemir 5 mg SQ BID observe closely once steroids are tapered down (6) Chronic systolic (congestive) heart failure ICD Codes: I50.22 - Chronic systolic (congestive) heart failure Plan: Continue patient's aspirin, Plavix, isosorbide Coreg, lisinopril and statin Review of outpatient records patient's last echocardiogram May 2017 revealed ejection fraction 35%. Monitor patient for signs and symptoms of fluid overload with IV fluid Patient is unsure if he is taking Lasix 20 mg twice a day with potassium supplement at home. Patient appears dehydrated will hold and await clarification of home medications Assessment and Plan Patient examined. Assessment and plan formulated with Ellen Wahl PA-C. I agree with the above. Problem Qualifiers (1) Pneumonia: Qualified Codes: J18.9 - Pneumonia, unspecified organism Ellen Wahl Aug 02, 2017 15:11 Arnaud Fountain DO Aug 06, 2017 00:57
[2017-08-02] MEDS: INSULIN DETEMIR 100 UNITS/ML VIAL SQ SCH (19:47)
[2017-08-03] VITALS: BP 135/65; PULSE 73; RESP 17; TEMP 97.1; O2SAT 95
[2017-08-03 08:00] VITALS: BP 140/70; PULSE 68; RESP 16; TEMP 96.4; O2SAT 96
--- NOTE | 2017-08-03 08:25 | HHI.PR ---
Subjective Remarks Patient reports his breathing is, "better than it has been in years." occasional nonproductive cough Objective Vitals Vital Signs Date Time Temp Pulse Resp B/P (MAP) Pulse Ox O2 Delivery O2 Flow Rate FiO2 08/03/17 00:00 97.1 73 17 135/65 (88) 95 08/02/17 20:00 96.9 65 17 111/56 (74) 94 08/02/17 16:00 96.9 71 17 127/58 (81) 97 08/02/17 14:29 61 08/02/17 12:00 96.5 67 18 110/54 (72) 95 Result Diagram: 08/02/17 0642 08/02/17 0642 Other Results Laboratory Tests Test 08/01/17 12:05 08/01/17 13:50 08/01/17 17:50 08/02/17 06:42 White Blood Count 9.8 TH/MM3 13.7 TH/MM3 Red Blood Count 4.18 MIL/MM3 4.23 MIL/MM3 Hemoglobin 13.1 GM/DL 13.0 GM/DL Hematocrit 36.3 % 36.4 % Mean Corpuscular Volume 86.8 FL 85.9 FL Mean Corpuscular Hemoglobin 31.3 PG 30.7 PG Mean Corpuscular Hemoglobin Concent 36.0 % 35.7 % Red Cell Distribution Width 14.4 % 14.2 % Platelet Count 151 TH/MM3 172 TH/MM3 Mean Platelet Volume 7.0 FL 7.2 FL Neutrophils (%) (Auto) 79.2 % 88.3 % Lymphocytes (%) (Auto) 11.9 % 8.2 % Monocytes (%) (Auto) 8.4 % 3.3 % Eosinophils (%) (Auto) 0.1 % 0.0 % Basophils (%) (Auto) 0.4 % 0.2 % Neutrophils # (Auto) 7.8 TH/MM3 12.1 TH/MM3 Lymphocytes # (Auto) 1.2 TH/MM3 1.1 TH/MM3 Monocytes # (Auto) 0.8 TH/MM3 0.4 TH/MM3 Eosinophils # (Auto) 0.0 TH/MM3 0.0 TH/MM3 Basophils # (Auto) 0.0 TH/MM3 0.0 TH/MM3 CBC Comment AUTO DIFF DIFF FINAL Differential Total Cells Counted 100 Neutrophils % (Manual) 73 % Band Neutrophils % 16 % Lymphocytes % 6 % Monocytes % 5 % Neutrophils # (Manual) 8.7 TH/MM3 Differential Comment FINAL DIFF MANUAL Platelet Estimate NORMAL Platelet Morphology Comment NORMAL Ovalocytes 1+ Urine Color YELLOW Urine Turbidity CLEAR Urine pH 7.0 Urine Specific [place] 1.015 Urine Protein TRACE mg/dL Urine Glucose (UA) NEG mg/dL Urine Ketones NEG mg/dL Urine Occult Blood NEG Urine Nitrite NEG Urine Bilirubin NEG Urine Urobilinogen 8.0 MG/DL Urine Leukocyte Esterase NEG Urine RBC 1 /hpf Urine Squamous Epithelial Cells 1 /hpf Microscopic Urinalysis Comment CULT NOT INDICATED Blood Urea Nitrogen 35 MG/DL 40 MG/DL Creatinine 1.41 MG/DL 1.33 MG/DL 1.38 MG/DL Random Glucose 161 MG/DL 208 MG/DL Total Protein 7.6 GM/DL Albumin 3.6 GM/DL Calcium Level 8.3 MG/DL 8.4 MG/DL Alkaline Phosphatase 130 U/L Aspartate Amino Transf (AST/SGOT) 21 U/L Alanine Aminotransferase (ALT/SGPT) 15 U/L Total Bilirubin 1.0 MG/DL Sodium Level 138 MEQ/L 135 MEQ/L Potassium Level 4.3 MEQ/L 3.8 MEQ/L Chloride Level 102 MEQ/L 101 MEQ/L Carbon Dioxide Level 28.6 MEQ/L 25.6 MEQ/L Anion Gap 7 MEQ/L 8 MEQ/L Estimat Glomerular Filtration Rate 49 ML/MIN 52 ML/MIN 50 ML/MIN Lipase 56 U/L Lactic Acid Level 1.5 mmol/L Imaging Last Impressions Abdomen/Pelvis CT 08/01/17 1141 Signed Impressions: Service Date/Time: Tuesday, August 01, 2017 13:24 - CONCLUSION: 1. No evidence of acute abdominal or pelvic process. No masses are identified. 2. Right basilar atelectasis versus pneumonia 3. Fat-containing right inguinal hernia 4. 5. Right lateral abdominal wall hernia containing nonincarcerated: 6. Cholelithiasis Brice Perez MD Chest X-Ray 08/01/17 0000 Signed Impressions: Service Date/Time: Tuesday, August 01, 2017 11:59 - CONCLUSION: Right basilar streakiness consistent with atelectasis and/or mild infiltrate. Clinical correlation is recommended. Dioni Proctor MD Objective Remarks GENERAL: This is a well-nourished, well-developed patient, in no apparent distress. CARDIOVASCULAR: Regular rate and rhythm RESPIRATORY: coarse bilateral bases GASTROINTESTINAL: Abdomen soft, non-tender, nondistended. No hepato-splenomegaly , or palpable masses. No guarding. MUSCULOSKELETAL: Extremities without clubbing, cyanosis, or edema. No joint tenderness, effusion, or edema noted. No calf tenderness. Negative Homans sign bilaterally. NEUROLOGICAL: Awake and alert. No focal deficits identified. Motor and sensory grossly within normal limits. 5 out of 5 muscle strength in all muscle groups. Normal speech. A/P Problem List: (1) Pneumonia ICD Codes: J18.9 - Pneumonia, unspecified organism Status: Acute Plan: This is 77-year-old male patient with past medical history which includes CAD status post cardiac stents, chronic kidney disease stage II, hyperlipidemia, hypertension, diabetes mellitus and chronic systolic congestive heart failure. Patient presents to the emergency department due to cough congestion and abdominal pain. Patient reports that he has had cough and shortness of breath for the past couple of days. He reports that the cough is dry, worse at night, associated with nasal congestion. He reports that 2 days ago he was having chills and subjective fever. Patient denies chest pain, nausea/vomiting, diarrhea, sore throat, rash, recent travel or sick contacts. He has been using [id number] cough and cold medications but his symptoms have persisted. Chest x-ray obtained in the emergency department reveals right basilar streakiness consistent with atelectasis and/or mild infiltrate. contionue azithromycin and Rocephin Duonebs every 6 hours while awake and every 2 hours when necessary Solumedrol 60 mg IV BID 08/01 - 08/02 prednisone 30 mg PO BID 08/03 (2) Abdominal pain ICD Codes: R10.9 - Unspecified abdominal pain Plan: CT abdomen and pelvis obtained in the emergency department reveals no evidence of acute abdominal or pelvic process. No masses are identified. Right basilar atelectasis versus pneumonia. Fat containing right inguinal hernia. Right lateral abdominal wall hernia nonincarcerated. Abdominal pain likely musculoskeletal secondary to coughing (3) CAD (coronary artery disease) ICD Codes: I25.10 - Atherosclerotic heart disease of [place] coronary artery without angina pectoris Plan: Continue patient's aspirin, Plavix, isosorbide Coreg and statin (4) Hyperlipidemia ICD Codes: E78.5 - Hyperlipidemia, unspecified Plan: Continue home statin (5) Diabetes ICD Codes: E11.9 - Type 2 diabetes mellitus without complications Plan: Hold oral diabetic medication while in the hospital Accu-Cheks before meals at bedtime with Sliding scale insulin coverage and diabetic diet 08/02 blood sugar running high 190- 274 08/03 blood sugar remains elevated 319 continue Levemir 5 mg SQ BID and SSI observe closely once steroids are tapered down, solumedrol DC 08/03 and prednisone started (6) Chronic systolic (congestive) heart failure ICD Codes: I50.22 - Chronic systolic (congestive) heart failure Plan: Continue patient's aspirin, Plavix, isosorbide Coreg, lisinopril and statin Review of outpatient records patient's last echocardiogram May 2017 revealed ejection fraction 35%. Monitor patient for signs and symptoms of fluid overload with IV fluid, patient tolerating PO DC IV fluid 08/02 PM Patient is unsure if he is taking Lasix 20 mg twice a day with potassium supplement at home. Patient appears dehydrated will hold and await clarification of home medications Assessment and Plan Patient examined. Assessment and plan formulated with Ellen Wahl PA-C. I agree with the above. pna. cont abx and convert iv to po steroids probably d/c tomorrow. Problem Qualifiers (1) Pneumonia: Qualified Codes: J18.9 - Pneumonia, unspecified organism Ellen Wahl Aug 03, 2017 08:25 Juan Luis Jacques MD Aug 03, 2017 11:36
[2017-08-03] MEDS: PRASUGREL 10 MG TAB PO SCH (08:26)
[2017-08-03] MEDS: ISOSORBIDE MONONITRATE 30 MG TAB PO SCH (08:26)
[2017-08-03] MEDS: ASPIRIN 81 MG CHEW TAB CHEW SCH (08:26)
[2017-08-03] MEDS: cefTRIAXone INJ 1,000 MG in SODIUM CHLORIDE 0.9% INJ 100 ML IV SCH (08:27)
[2017-08-03] MEDS: LISINOPRIL 5 MG TAB PO SCH (08:27)
[2017-08-03] MEDS: INSULIN DETEMIR 100 UNITS/ML VIAL SQ SCH ×2 (08:27→21:18)
[2017-08-03] MEDS: AZITHROMYCIN 250 MG TAB PO SCH (08:27)
[2017-08-03] MEDS: CARVEDILOL 3.125 MG TAB PO SCH ×2 (08:27→21:17)
[2017-08-03] MEDS: FERROUS SULFATE 325 MG (65 MG ELEMENTAL IRON) TAB PO SCH (08:27)
[2017-08-03] MEDS: INSULIN ASPART SUPPLEMENTAL SCALE SQ SCH ×4 (08:28→21:19)
[2017-08-03] MEDS: SODIUM CHLORIDE 0.9% FLUSH 10 ML FLUSH IV FLUSH SCH ×2 (08:28→21:20)
[2017-08-03] MEDS ORDERED: PILL SPLITTER OTHER PRN (08:45)
[2017-08-03] MEDS: RESP: ALBUTEROL 2.5 MG/IPRATROPIUM 0.5 MG NEB (SCH) NEB ×3 (08:58→20:44)
[2017-08-03] MEDS: predniSONE 20 MG TAB PO SCH ×2 (09:22→21:17)
[2017-08-03] MEDS ORDERED: METF1000 PO (09:27)
[2017-08-03] MEDS ORDERED: metFORMIN HCL 500 MG TAB PO SCH (09:30)
[2017-08-03 12:00] VITALS: BP 116/62; PULSE 61; RESP 18; TEMP 96.6; O2SAT 98
[2017-08-03 16:00] VITALS: BP 133/62; PULSE 63; RESP 18; TEMP 97.1; O2SAT 94
[2017-08-03 20:00] VITALS: BP 138/65; PULSE 77; RESP 18; TEMP 97.1; O2SAT 95
[2017-08-04] VITALS: BP 142/66; PULSE 68; RESP 18; TEMP 96.1; O2SAT 98
[2017-08-04] MEDS: CARVEDILOL 3.125 MG TAB PO SCH (07:51)
[2017-08-04] MEDS: FERROUS SULFATE 325 MG (65 MG ELEMENTAL IRON) TAB PO SCH (07:51)
[2017-08-04] MEDS: ASPIRIN 81 MG CHEW TAB CHEW SCH (07:52)
[2017-08-04] MEDS: LISINOPRIL 5 MG TAB PO SCH (07:52)
[2017-08-04] MEDS: cefTRIAXone INJ 1,000 MG in SODIUM CHLORIDE 0.9% INJ 100 ML IV SCH (07:52)
[2017-08-04] MEDS: ISOSORBIDE MONONITRATE 30 MG TAB PO SCH (07:52)
[2017-08-04] MEDS: predniSONE 20 MG TAB PO SCH (07:52)
[2017-08-04] MEDS: PRASUGREL 10 MG TAB PO SCH (07:52)
[2017-08-04] MEDS: AZITHROMYCIN 250 MG TAB PO SCH (07:52)
[2017-08-04] MEDS: INSULIN DETEMIR 100 UNITS/ML VIAL SQ SCH (07:53)
[2017-08-04] MEDS: INSULIN ASPART SUPPLEMENTAL SCALE SQ SCH ×2 (07:53→11:40)
[2017-08-04] MEDS: SODIUM CHLORIDE 0.9% FLUSH 10 ML FLUSH IV FLUSH SCH (07:59)
[2017-08-04 08:00] VITALS: BP 159/77; PULSE 70; RESP 18; TEMP 98.5; O2SAT 97
[2017-08-04] MEDS: RESP: ALBUTEROL 2.5 MG/IPRATROPIUM 0.5 MG NEB (SCH) NEB (08:41)
[2017-08-04] MEDS ORDERED: PRED10 PO (10:49)
[2017-08-04] MEDS ORDERED: LEVA500T33 PO (10:49)
[2017-08-04] MEDS ORDERED: VENTAER INH (10:54)
--- NOTE | 2017-08-04 11:04 | HHI.DS ---
Discharge Summary Admission Date Aug 01, 2017 at 14:48 Discharge Date: Aug 04, 2017 Admitting Diagnosis community-acquired pneumonia (1) Pneumonia ICD Codes: J18.9 - Pneumonia, unspecified organism Status: Acute (2) Abdominal pain ICD Codes: R10.9 - Unspecified abdominal pain (3) CAD (coronary artery disease) ICD Codes: I25.10 - Atherosclerotic heart disease of [place] coronary artery without angina pectoris (4) Hyperlipidemia ICD Codes: E78.5 - Hyperlipidemia, unspecified (5) Diabetes ICD Codes: E11.9 - Type 2 diabetes mellitus without complications (6) Chronic systolic (congestive) heart failure ICD Codes: I50.22 - Chronic systolic (congestive) heart failure Brief History This is 77-year-old male patient with past medical history which includes CAD status post cardiac stents, chronic kidney disease stage II, hyperlipidemia, hypertension, diabetes mellitus and chronic systolic congestive heart failure. Patient presents to the emergency department due to cough congestion and abdominal pain. Patient reports that he has had cough and shortness of breath for the past couple of days. He reports that the cough is dry, worse at night, associated with nasal congestion. He reports that 2 days ago he was having chills and subjective fever. Patient denies chest pain, nausea/vomiting, diarrhea, sore throat, rash, recent travel or sick contacts. He has been using [id number] cough and cold medications but his symptoms have persisted. Chest x-ray obtained in the emergency department reveals right basilar streakiness consistent with atelectasis and/or mild infiltrate. CBC/BMP: 08/02/17 0642 08/02/17 0642 Significant Findings Laboratory Tests Test 08/01/17 12:05 08/01/17 13:50 08/01/17 17:50 08/02/17 06:42 Red Blood Count 4.18 MIL/MM3 (4.50-5.90) 4.23 MIL/MM3 (4.50-5.90) Hematocrit 36.3 % (39.0-51.0) 36.4 % (39.0-51.0) Neutrophils (%) (Auto) 79.2 % (16.0-70.0) 88.3 % (16.0-70.0) Monocytes (%) (Auto) 8.4 % (0.0-8.0) Neutrophils # (Auto) 7.8 TH/MM3 (1.8-7.7) 12.1 TH/MM3 (1.8-7.7) Neutrophils % (Manual) 73 % (16-70) Band Neutrophils % 16 % (0-6) Lymphocytes % 6 % (9-44) Neutrophils # (Manual) 8.7 TH/MM3 (1.8-7.7) Ovalocytes 1+ (NORMAL) Urine Urobilinogen 8.0 MG/DL (LESS THAN Blood Urea Nitrogen 35 MG/DL (7-18) 40 MG/DL (7-18) Creatinine 1.41 MG/DL (0.60-1.30) 1.33 MG/DL (0.60-1.30) 1.38 MG/DL (0.60-1.30) Random Glucose 161 MG/DL (74-106) 208 MG/DL (74-106) Calcium Level 8.3 MG/DL (8.5-10.1) 8.4 MG/DL (8.5-10.1) Alkaline Phosphatase 130 U/L (45-117) Estimat Glomerular Filtration Rate 49 ML/MIN (>89) 52 ML/MIN (>89) 50 ML/MIN (>89) Lipase 56 U/L (73-393) White Blood Count 13.7 TH/MM3 (4.0-11.0) Lymphocytes (%) (Auto) 8.2 % (9.0-44.0) Sodium Level 135 MEQ/L (136-145) Imaging Last Impressions Chest X-Ray 08/02/17 0800 Signed Impressions: Service Date/Time: Wednesday, August 02, 2017 08:37 - CONCLUSION: 1. No acute cardiopulmonary disease. 2. Elevation of the right hemidiaphragm. 3. Degenerative changes involving the thoracic spine. Dioni Proctor MD Abdomen/Pelvis CT 08/01/17 1141 Signed Impressions: Service Date/Time: Tuesday, August 01, 2017 13:24 - CONCLUSION: 1. No evidence of acute abdominal or pelvic process. No masses are identified. 2. Right basilar atelectasis versus pneumonia 3. Fat-containing right inguinal hernia 4. 5. Right lateral abdominal wall hernia containing nonincarcerated: 6. Cholelithiasis Brice Perez MD PE at Discharge GENERAL: This is a well-nourished, well-developed patient, in no apparent distress. CARDIOVASCULAR: Regular rate and rhythm RESPIRATORY: coarse bilateral bases GASTROINTESTINAL: Abdomen soft, non-tender, nondistended. No hepato-splenomegaly , or palpable masses. No guarding. MUSCULOSKELETAL: Extremities without clubbing, cyanosis, or edema. No joint tenderness, effusion, or edema noted. No calf tenderness. Negative Homans sign bilaterally. NEUROLOGICAL: Awake and alert. No focal deficits identified. Motor and sensory grossly within normal limits. 5 out of 5 muscle strength in all muscle groups. Normal speech. Hospital Course Pneumonia This is 77-year-old male patient with past medical history which includes CAD status post cardiac stents, chronic kidney disease stage II, hyperlipidemia, hypertension, diabetes mellitus and chronic systolic congestive heart failure. Patient presents to the emergency department due to cough congestion and abdominal pain. Patient reports that he has had cough and shortness of breath for the past couple of days. He reports that the cough is dry, worse at night, associated with nasal congestion. He reports that 2 days ago he was having chills and subjective fever. Patient denies chest pain, nausea/vomiting, diarrhea, sore throat, rash, recent travel or sick contacts. He has been using [id number] cough and cold medications but his symptoms have persisted. Chest x-ray obtained in the emergency department reveals right basilar streakiness consistent with atelectasis and/or mild infiltrate. continue azithromycin and Rocephin -> transition to Levaquin for addition 6 days at ID Duonebs every 6 hours while awake and every 2 hours when necessary Solumedrol 60 mg IV BID 08/01 - 08/02 prednisone 30 mg PO BID 08/03 -> taper at ID Abdominal pain CT abdomen and pelvis obtained in the emergency department reveals no evidence of acute abdominal or pelvic process. No masses are identified. Right basilar atelectasis versus pneumonia. Fat containing right inguinal hernia. Right lateral abdominal wall hernia nonincarcerated. Abdominal pain likely musculoskeletal secondary to coughing CAD (coronary artery disease) Continue patient's aspirin, Plavix, isosorbide Coreg and statin Hyperlipidemia Continue home statin Diabetes Hold oral diabetic medication while in the hospital Accu-Cheks before meals at bedtime with Sliding scale insulin coverage and diabetic diet 08/02 blood sugar running high 190- 274 08/03 blood sugar remains elevated 319 continue Levemir 5 mg SQ BID and SSI observe closely once steroids are tapered down, solumedrol ID 08/03 and prednisone started Chronic systolic (congestive) heart failure Continue patient's aspirin, Plavix, isosorbide Coreg, lisinopril and statin Review of outpatient records patient's last echocardiogram May 2017 revealed ejection fraction 35%. Monitor patient for signs and symptoms of fluid overload with IV fluid, patient tolerating PO DC IV fluid 1/7 PM Patient is unsure if he is taking Lasix 20 mg twice a day with potassium supplement at home. Patient appears dehydrated will hold and await clarification of home medications Patient to follow up with PCP after DC Pt Condition on Discharge: Stable Discharge Disposition: Discharge Home Discharge Instructions DIET: Follow Instructions for: Diabetic Diet Activities you can perform: Regular-No Restrictions Follow up Referrals: PCP Follow-up - [address] Childs New Medications: Albuterol 18 GM Inh (Ventolin Hfa 18 GM Inh) 90 Mcg/Act Aer 2 PUFF INH Q4-6H PRN for SHORTNESS OF BREATH, #1 INHALER 0 Refills Levofloxacin (Levaquin) 500 Mg Tablet 500 MG PO DAILY for Infection, #6 TAB 0 Refills Prednisone (Prednisone) 10 Mg Tab 10 MG PO DIRECTED for steroid taper, #9 TAB 0 Refills Take 20 mg by mouth once a day for 3 days, then take 10 mg by mouth once a day for 3 days, then stop Continued Medications: Aspirin (Aspirin) 81 Mg Chew 81 MG CHEW DAILY, TAB 0 Refills Carvedilol (Carvedilol) 3.125 Mg Tab 3.125 MG PO BID, #60 TAB 0 Refills Ferrous Sulfate (Ferrous Sulfate) 325 Mg (65 Mg Iron) Tablet 325 MG PO DAILY for Nutritional Supplement, #30 TAB 0 Refills Hydrochlorothiazide (Hydrochlorothiazide) 25 Mg Tab 25 MG PO DAILY, #30 TAB 0 Refills Isosorbide Mononitrate ER (Isosorbide Mononitrate ER) 30 Mg Mehul 30 MG PO DAILY for Prevent Chest Pain, #30 TAB 0 Refills Lisinopril (Lisinopril) 5 Mg Tab 5 MG PO DAILY for Blood Pressure Management, #30 TAB 0 Refills Metformin (Metformin) 1,000 Mg Tab 1000 MG PO BIDPC for Blood Sugar Management, #60 TAB 0 Refills Prasugrel HCl (Prasugrel HCl) 10 Mg Tablet 10 MG PO DAILY Ellen Wahl Aug 04, 2017 11:04 Juan Luis Jacques MD Aug 04, 2017 14:44
== END 2017-08-04 12:48 | disposition home or self-care (01) | DRG 194 ==
LOC: NEPE 11:20 → NEDA 14:48 → N07B 16:13
PROVIDERS: ADMIT Hospitalist; ATTEND Hospitalist
DX: J18.9 Pneumonia, unspecified organism (principal); I50.22 Chronic systolic (congestive) heart failure; I13.0 Hypertensive heart and chronic kidney disease with heart failure and stage 1 through stage 4 chronic kidney disease, or unspecified chronic kidney disease; N18.2 Chronic kidney disease, stage 2 (mild); E11.9 Type 2 diabetes mellitus without complications; I25.10 Atherosclerotic heart disease of native coronary artery without angina pectoris; Z95.5 Presence of coronary angioplasty implant and graft; Z87.891 Personal history of nicotine dependence; E78.5 Hyperlipidemia, unspecified; Z79.82 Long term (current) use of aspirin; K40.90 Unilateral inguinal hernia, without obstruction or gangrene, not specified as recurrent; K43.9 Ventral hernia without obstruction or gangrene; R10.9 Unspecified abdominal pain
CPT/HCPCS: 71045; 71046; 74177; 80048; 80053; 81001; 82565; 82948; 83605; 83690; 85007; 85025; 85027; 87040; 87804; 93005; 94150; 94640; 94664; 96361; 96374; 96375; J0456; J0696; J1815; J2930; J7040; J7050; J7512; Q9967